=== PATIENT | female | born 1950 | race Caucasian/White ===

== ENCOUNTER → 2017-03-31 | Outpatient (CLI) | payer OTHER, MEDICAID ==
[~2017-03-31] MED LIST: ADVIL200 MG PO; ATIVAN0.5 M1 PO; BACO TOP; BICARSIM80 M1 PO; COLACE100 MG PO; COUMADIN5 MG PO; DULCOLAX10 MG RC; GLUCOPHAGE XR500 MG PO; LACTULOSE10 GM/152 PO; MAGL PO; MILK OF MA1200 MG/11 PO; MP PO; NOR10T PO; NUEDEXTA1 CAP PO; PEPCID20 MG PO; PREMARIN0.625 MG PO; SENNA8.6 M2 PO; TRAMADOL50 M1 PO; TRILEPTAL300 MG PO; VASOTEC20 MG PO; ZYPREXA7.5 MG PO
== END | disposition home or self-care (01) ==
LOC: CT 12:37
PROC: BW28ZZZ Computerized Tomography (CT Scan) of Head (ICD-10-PCS; principal; 2017-03-31)
DX: F03.90 Unspecified dementia, unspecified severity, without behavioral disturbance, psychotic disturbance, mood disturbance, and anxiety (principal)